=== PATIENT | female | born 1970 ===

== ENCOUNTER 2018-03-28 17:58 | Emergency (ER) | payer BC ==
[2018-03-28 18:52] VITALS: BP 127/91
--- NOTE | 2018-03-28 19:22 | UC ---
Lower Extremity/Ankle HPI - HPI Summary HPI Summary: Pt presents with right lateral ankle pain since this am. Pt was walking down stair, thought was on last and missed 2 steps. Pt with right ankle pain since. Did not strike head. No LOC. No blood HEENT No neck or pain back pain. No injuries other than ankle. Pt took motrin this am, none since. Pain worse with walking. No knee or hip pain. no h/o ankle injury pt's medications reviewed this visit - History of Current Complaint Chief Complaint: UCLowerExtremity Stated Complaint: RIGHT ANKLE INJURY Time Seen by Provider: 03/28/18 19:16 Hx Obtained From: Patient Hx Last Menstrual Period: mirena ?: No Onset/Duration: Sudden Onset Severity Currently: Moderate Pain Intensity: 7 Pain Scale Used: 0-10 Numeric Aggravating Factor(s): Standing, Ambulation Alleviating Factor(s): Ice, OTC Meds Able to Bear Weight: Yes - with limp - Allergies/Home Medications Allergies/Adverse Reactions: Allergies Allergy/AdvReac Type Severity Reaction Status Date / Time oxycodone AdvReac Nausea And Verified 03/28/18 18:45 Vomiting Home Medications: Home Medications Levonorgestrel (Iud) [Mirena IUD] 20 mcg IU SEE INSTRUCTIONS 03/28/18 [History Confirmed 03/28/18] PMH/Surg Hx/FS Hx/Imm Hx Previously Healthy: Yes - Surgical History Surgical History: Yes Surgery Procedure, Year, and Place: 2008 TUBAL ECTOPIC [place]. 2004 D&C [place]. 1991 ABD. LAP ECTOPIC [place]. [place] - Family History Known Family History: Positive: Hypertension - Social History Occupation: Employed Full-time Lives: With Family Alcohol Use: Rare Substance Use Type: None Smoking Status (MU): Never Smoked Tobacco Review of Systems Constitutional: Negative Skin: Negative Motor: Other - right ankle Neurovascular: Negative Musculoskeletal: Decreased ROM All Other Systems Reviewed And Are Negative: Yes Physical Exam Triage Information Reviewed: Yes Appearance: Well-Appearing, No Pain Distress, Well-Nourished Vital Signs: Initial Vital Signs Temp 99.5 F 03/28/18 18:46 Pulse 92 03/28/18 18:46 Resp 18 03/28/18 18:46 BP 127/91 03/28/18 18:46 Pulse Ox 99 03/28/18 18:46 Vital Signs Reviewed: Yes Eyes: Positive: Conjunctiva Clear ENT: Positive: Hearing grossly normal Neck exam: Normal Neck: Positive: Supple Respiratory: Positive: No respiratory distress, No accessory muscle use Cardiovascular: Positive: Brisk Capillary Refill, Other: - 2+ DP, PT Musculoskeletal: Positive: Other: - + SLE + flex/ext knee + flex/ext right ankel with discomfort lateral malleoulus + great toe extension No pain along phalagens, tarsals, metatarsals + TTP anterior, inferior mall right lateral Neurological Exam: Normal Neurological: Positive: Alert Psychological Exam: Normal Skin: Positive: Other - mild edema, no ecchymosis right lateral ankle Diagnostics - Radiology No standard instances Xray Interpretation: No Acute Changes Radiology Interpretation Completed By: Radiologist Lower Extremity Course/Dx - Course Course Of Treatment: Pt with right lateral ankel pain s/p fall this am. No crepitus. + edema. imaging neg fx. splint. marie. elevate. motrin/apap. f/u - Differential Dx/Diagnosis Provider Diagnoses: right ankle pain Discharge - Sign-Out/Discharge Documenting (check all that apply): Discharge/Admit/Transfer - Discharge Plan Condition: Stable Disposition: HOME Patient Education Materials: Ankle Sprain (ED) Forms: *Gen. Provider Communication Referrals: Benigno Harmon MD [Medical Doctor] - Galileo Corrigan MD [Primary Care Provider] - Additional Instructions: -wear marie wrap and splint for comfort and support -apply ice (20 min at a time) every 2-3 hours for the next 2 days -use crutches until you can walk normally without a limp -Elevate your leg - this will help with swelling and pain - Alternate ibuprofen (advil, Motrin) 600mg and tylenol every 3 hours for pain. Take with food. Do NOT take for more than 4-5 days -Contact the orthopedic provider to schedule a follow-up appointment and further evaluation of your injury - Billing Disposition and Condition Condition: STABLE Disposition: HOME
--- NOTE | 2018-03-28 19:26 | RAD ---
INDICATION: RIGHT ankle injury post fall down stairs. Lateral soft tissue swelling and pain. Comparison: No relevant prior exams available on the [facility] for comparison. Technique: AP, mortise, and lateral views RIGHT ankle. Report: Moderate soft tissue swelling over the lateral malleolus and evidence for talocrural joint effusion. No fracture evident. Os trigonum accessory ossicle noted. IMPRESSION: Consider lateral supporting ligament injury.
== END 2018-03-28 19:46 | disposition home or self-care (01) ==
LOC: UCCORT 17:58
DX: M25.571 Pain in right ankle and joints of right foot (principal); W10.9XXA Fall (on) (from) unspecified stairs and steps, initial encounter; Y93.01 Activity, walking, marching and hiking; Y92.9 Unspecified place or not applicable; Z88.5 Allergy status to narcotic agent
CPT/HCPCS: 99203; G0463

== ENCOUNTER 2020-01-08 16:33 | Emergency (ER) | payer SELFPAY ==
[2020-01-08 18:10] VITALS: BP 137/97
--- NOTE | 2020-01-08 18:13 | UC ---
FLU HPI - HPI Summary HPI Summary: 49yo female presenting with nonproductive cough and fever since yesterday afternoon. Patient states "it came so fast it feels like I got hit by a truck." Denies nasal congestion and sore throat. Denies sob and wheezing. Denies n/v. States she is taking dayquil for symptom relief. 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 - History of Current Complaint Chief Complaint: UCRespiratory Stated Complaint: FLU SYMP Hx Obtained From: Patient Hx Last Menstrual Period: n/a Pain Intensity: 4 Pain Scale Used: 0-10 Numeric - Allergy/Home Medications Allergies/Adverse Reactions: Allergies Allergy/AdvReac Type Severity Reaction Status Date / Time oxycodone AdvReac Nausea And Verified 01/08/20 18:10 Vomiting Home Medications: Home Medications Levonorgestrel (Iud) [Mirena IUD] 20 mcg IU SEE INSTRUCTIONS 03/28/18 [History Confirmed 01/08/20] D-Methorphan/PE/Acetaminophen [Cold Relief/Non-Drowsy/Da 10-5-325 mg] 1 tab PO ONCE PRN 01/08/20 [History Confirmed 01/08/20] PMH/Surg Hx/FS Hx/Imm Hx - Surgical History Surgical History: Yes Surgery Procedure, Year, and Place: 2008 TUBAL ECTOPIC [place]. 2004 D&C [place]. 1991 ABD. LAP ECTOPIC [place]. [place] - Family History Known Family History: Positive: Hypertension - Social History Alcohol Use: Rare Substance Use Type: None Smoking Status (MU): Former Smoker Have You Smoked in the Last Year: Yes When Did the Patient Quit Smoking/Using Tobacco: 2004 Review of Systems All Other Systems Reviewed And Are Negative: Yes Constitutional: Positive: Fever, Chills, Fatigue ENT: Positive: Negative Respiratory: Positive: Cough. Negative: Shortness Of Breath Cardiovascular: Positive: Negative Gastrointestinal: Positive: Negative Musculoskeletal: Positive: Myalgia Neurological/Mental Status: Positive: Negative Physical Exam - Summary Physical Exam Summary: Vital Signs Reviewed: Yes A+Ox3, no distress, fatigued Eyes: Conjunctiva Clear ENT: Hearing grossly normal, TM x 2 clear, moist, uvula midline, no exudate, no erythema Neck: Positive: Supple Respiratory: Positive: No respiratory distress, No accessory muscle use + CTA throughout no w/r Cardiovascular: RRR nl s1, s2 no m/r Musculoskeletal Exam: SCOTT x 4 without difficulty Neurological: Positive: Alert Psychological: Positive: age appropriate behavior Skin: Positive: no rash, no ecchymosis Vital Signs: Initial Vital Signs Temp 100.2 F 01/08/20 18:05 Pulse 106 01/08/20 18:05 Resp 20 01/08/20 18:05 BP 137/97 01/08/20 18:05 Pulse Ox 99 01/08/20 18:05 Lab Results 01/08/20 Range/Units 18:18 Influenza A (Rapid) Positive H (Negative) Flu Course/Dx - Course Course Of Treatment: Positive rapid flu A. I discussed influenza with the patient and educated on symptomatic treatment. Patient declined treatment with tamiflu. I educated on s/ s of worsening respiratory illness and instructed to go to ED if any red flags occur. Patient voiced understanding and agreed with treatment plan. - Differential Dx/Diagnosis Differential Diagnosis/HQI/PQRI: Influenza, Upper Respiratory Infection Provider Diagnosis: Influenza A Discharge ED - Sign-Out/Discharge Documenting (check all that apply): Patient Departure All imaging exams completed and their final reports reviewed: No Studies - Discharge Plan Condition: Stable Disposition: HOME Patient Education Materials: Influenza (ED) Referrals: Galileo Corrigan MD [Primary Care Provider] - If Needed Additional Instructions: You tested positive for influenza A today. You may continue with over the counter cold and flu medications as directed for symptom relief. Get plenty of rest and increase your fluid intake. Follow up with your primary care provider if symptoms do not improve within 5-7 days. Go to the emergency room if you experience new or worsening symptoms. - Billing Disposition and Condition Condition: STABLE Disposition: Home - Attestation Statements Provider Attestation: This patient was not seen by me. I was available for consult. Chart reviewed. ROGELIO
[2020-01-08 18:22] LABS: Influenza A Molecular POSITIVE (Negative)
== END 2020-01-08 18:54 | disposition home or self-care (01) ==
LOC: UCCORT 16:33
DX: J10.1 Influenza due to other identified influenza virus with other respiratory manifestations (principal); Z88.5 Allergy status to narcotic agent; Z87.891 Personal history of nicotine dependence
CPT/HCPCS: 99211; G0463